=== PATIENT | female | born 1950 | race Caucasian/White ===

== ENCOUNTER → 2016-10-30 | Outpatient (CLI) | payer MEDICARE ==
[2014-06-02 14:15] VITALS: BP 133/82
[~2016-10-30] MED LIST: ACET500T68 PO; ASPI-482 PO; CARV6.252 PO; CRAN1TAB6 PO; DOXY100C2 PO; ISOS60TA2 PO; LEVO75TA5 PO; MULT-18 PO; PRAV40TA2 PO; RANI75TA12 PO; [UNRECOGNIZED DRUG - CODE] PO; [UNRECOGNIZED DRUG - OTHER]
[2016-10-30 15:03] LABS: BASO # 0.1 x10^3/uL (0.0-0.2); BASO % 1 % (0-3); EOS # 0.4 x10^3/uL (0.0-0.7); EOS % 4 % (0-3); HEMATOCRIT 35.2 % (36.0-47.0); HEMOGLOBIN 11.9 g/dL (12.0-15.5); LYMPH % 22 % (24-48); MEAN CORPUSCULAR HEMOGLOBIN 31 pg (25-35); MEAN CORPUSCULAR HGB CONC 34 g/dL (31-37); MEAN CORPUSCULAR VOLUME 90 fL (79-100); MONO # 0.8 x10^3/uL (0.0-1.1); MONO % 9 % (0-9); NEUT % 64 % (31-73); PLATELET COUNT 320 x10^3/uL (140-400); RED BLOOD COUNT 3.89 x10^6/uL (3.50-5.40); RED CELL DISTRIBUTION WIDTH 13.2 % (11.5-14.5); WHITE BLOOD COUNT 9.3 x10^3/uL (4.0-11.0)
[2016-10-30 15:14] LABS: ALBUMIN 3.4 g/dL (3.4-5.0); ALBUMIN/GLOBULIN RATIO 0.9 (1.0-1.7); CALCIUM 8.9 mg/dL (8.5-10.1); CREATININE 0.9 mg/dL (0.6-1.0); GFR 62.6; POTASSIUM 4.4 mmol/L (3.5-5.1); TOTAL BILIRUBIN 0.3 mg/dL (0.2-1.0); TOTAL PROTEIN 7.3 g/dL (6.4-8.2)
== END | disposition home or self-care (01) ==
LOC: LAB 14:06
PROVIDERS: ATTEND Nurse Practitioner
DX: R07.9 Chest pain, unspecified (principal)
CPT/HCPCS: 36415; 80053; 80061; 85027

== ENCOUNTER → 2017-11-02 | Outpatient (CLI) | payer MEDICARE ==
[2014-06-02 14:15] VITALS: BP 133/82
[2017-11-02 14:21] LABS: BASO % 0 % (0-3); EOS # 0.3 x10^3/uL (0.0-0.7); EOS % 4 % (0-3); HEMATOCRIT 40.3 % (36.0-47.0); HEMOGLOBIN 13.6 g/dL (12.0-15.5); LYMPH % 30 % (24-48); MEAN CORPUSCULAR HEMOGLOBIN 32 pg (25-35); MEAN CORPUSCULAR HGB CONC 34 g/dL (31-37); MEAN CORPUSCULAR VOLUME 95 fL (79-100); MONO # 0.4 x10^3/uL (0.0-1.1); MONO % 7 % (0-9); NEUT % 59 % (31-73); PLATELET COUNT 412 x10^3/uL (140-400); RED BLOOD COUNT 4.24 x10^6/uL (3.50-5.40); RED CELL DISTRIBUTION WIDTH 13.3 % (11.5-14.5); WHITE BLOOD COUNT 6.7 x10^3/uL (4.0-11.0)
[2017-11-02 14:36] LABS: ALBUMIN/GLOBULIN RATIO 0.4 (1.0-1.7); CALCIUM 8.5 mg/dL (8.5-10.1); GFR 55.3; TOTAL BILIRUBIN 0.2 mg/dL (0.2-1.0); TOTAL PROTEIN 6.5 g/dL (6.4-8.2)
== END | disposition home or self-care (01) ==
LOC: LAB 13:56
PROVIDERS: ATTEND Nurse Practitioner
DX: R00.0 Tachycardia, unspecified (principal); E78.5 Hyperlipidemia, unspecified; E03.9 Hypothyroidism, unspecified
CPT/HCPCS: 36415; 80053; 85025

== ENCOUNTER 2019-10-04 19:01 | Emergency (ER) | payer MEDICARE ==
[2014-06-02 14:15] VITALS: BP 133/82
[~2019-10-04] VITALS: Ht 149.9 cm; Wt 68.1 kg
[~2019-10-04 19:01] MED LIST changes: -CARV6.252 PO; +CARV6.2541 PO; -RANI75TA12 PO; +RANI75TA89 PO
--- NOTE | 2019-10-04 19:24 | PHYS DOC ---
Past History Past Medical History: Anemia, Anxiety, Arthritis, CAD, Cancer (Breast cancer with recurrence), Depression, GERD, Other Past Medical History MS Past Surgical History: Cancer Surgery, Hysterectomy, Pacemaker Past Surgical History Breast removal General Adult EDM: Chief Complaint: CPR/FULL ARREST HPI: HPI: " She was feeling hot... so we put her in the bath tub... she does not do well with heat... because of the MS.. she then started get short of breath....she then judah went out...we call the paramedics...they started CPR on her.. " ( ) Patient is a 69 year old female who presents with hx, if cardiopulmonary arrest. Paramedics advised they started CPR, appeared to be in V-fib and was shocked her 3 x. CPR by Thumper and Bag Mask Ventilations with oral air way. [employer] called at 1837, arrival at 1841, transported to ED arrival at 1901. Pt.Cyanotic, pulses only with compression. Pupils fixed and dilated. Pacer spike on monitor with wide complex. . No cardiac activity by Bedside US. Trachea mid line with coarse breath sounds bilateral. Glucose check 156. See code sheet for details. Code called at 1912 hrs. Patient has significant medical history of coronary artery disease, hypertension, hyperlipidemia, cardiac arrest in 2007. Peripheral neuropathy, TIAs, multiple sclerosis, breast cancer with reoccurrence, anemia, anxiety, depression, osteoarthritis, UTI, urinary incontinence secondary to MS, hypothyroidism, metabolic encephalopathy, seizure disorder, and deconditioning. Patient had previous surgical history of cholecystectomy, mastectomy total knee replacement hysterectomy and biopsies for breast cancer. Patient reportedly follows with Dr. Vila and Dr. Andrews, No recent travel out side [facility]. No recent specific ill contacts. Family visit at bed side post Code. Message left with Answering Service Dr. Vila and continuity clerk Dr. Hudson. Review of Systems: Review of Systems: Recent hx of fever complaints Heart Score: Risk Factors: Risk Factors: DM, Current or recent (<one month) smoker, HTN, HLP, family history of CAD, obesity. Risk Scores: Score 0 - 3: 2.5% MACE over next 6 weeks - Discharge Home Score 4 - 6: 20.3% MACE over next 6 weeks - Admit for Clinical Observation Score 7 - 10: 72.7% MACE over next 6 weeks - Early Invasive Strategies Family History: Family History: Non-contributory to presentation Family history of cervical cancer in sister coronary artery disease with father Current Medications: Current Meds: See nursing for home meds Allergies: Allergies: Allergies Coded Allergies Type Severity Reaction Last Updated Verified Sulfa (Sulfonamide Antibiotics) Allergy Severe Rash 06/02/14 Yes meperidine Allergy Severe Rash 06/02/14 Yes egg Allergy Intermediate NAUSEA AND VOMITING 06/02/14 Yes morphine Allergy Unknown confusion 06/02/14 Yes Uncoded Allergies Type Severity Reaction Last Updated Verified MUSCLE RELAXANTS Allergy Severe 05/26/14 Physical Exam: PE: Constitutional: Morbid and chronically ill in appearance. [] HENT: Normocephalic, atraumatic, bilateral external ears normal, oropharynx moist, no oral exudates, nose normal. Oral airway. Eyes: Pupils fixed and dilated. conjunctiva pale. no discharge. [] Neck: Trachea mid line Cardiovascular:No pulse without CPR, No cardiac activity by bed side US. Pacer spike on monitor. Wide complex. No pulse with pacer spike or contraction by US. No pericardia effusion. Lungs & Thorax: Bilateral breath sounds coarse at apexes on auscultation only with bag mask ventilations. No spontaneous ventilations. Abdomen: No bowel sounds. Skin: pale and cyanotic. Back: Veinous stasis changes and dependent lividity starting Extremities: Arthritic changes. Neurologic: No neuro activity detected. EKG: EKG: [] Radiology/Procedures: Radiology/Procedures: [] Course & Med Decision Making: Course & Med Decision Making Pertinent Labs and Imaging studies reviewed. (See chart for details) Impression: 1. Cardiopulmonary Arrest= 2. Co morbidities diagnosis-coronary disease, MS, breast cancer Time 1911 Joseph Disclaimer: Dragon Disclaimer: This electronic medical record was generated, in whole or in part, using a voice recognition dictation system. Departure Departure: Disposition: 01 HOME/RESIDENCE PRIOR TO ADM Condition: STABLE Referrals: MIKAYLA VILA MD (PCP) Justification of Admission: Justification of Admission: Justification of Admission Dx: N/A ( at 1911- Code called Cardiopulmonary arrest) Gemmaon Disclaimer This chart was dictated in whole or in part using Voice Recognition software in a busy, high-work load, and often noisy Emergency Department environment. It may contain unintended and wholly unrecognized errors or omissions. LESLIE SANCHEZ MD Oct 04, 2019 19:24
[2019-10-05] MEDS ORDERED: EPINEPHrine SYRINGE 1 MG/10 ML SYRINGE IV ONE ×3 (06:30)
== END 2019-10-04 19:12 | disposition expired ==
LOC: ER 19:01
DX: I46.9 Cardiac arrest, cause unspecified (principal); I25.10 Atherosclerotic heart disease of native coronary artery without angina pectoris; G35 Multiple sclerosis; Z85.3 Personal history of malignant neoplasm of breast; E78.5 Hyperlipidemia, unspecified; E03.9 Hypothyroidism, unspecified; I10 Essential (primary) hypertension; G40.909 Epilepsy, unspecified, not intractable, without status epilepticus; K21.9 Gastro-esophageal reflux disease without esophagitis; M19.90 Unspecified osteoarthritis, unspecified site; Z86.73 Personal history of transient ischemic attack (TIA), and cerebral infarction without residual deficits; Z87.442 Personal history of urinary calculi; Z86.2 Personal history of diseases of the blood and blood-forming organs and certain disorders involving the immune mechanism
CPT/HCPCS: 82947; 92950; 96374; 99285; J0171